=== PATIENT | male | born 1950 | race Two or more races ===

== ENCOUNTER 2021-10-31 14:51 | Outpatient (CLI) | payer OTHER | END 2021-10-31 14:53 | disposition home or self-care (01) | LOC: LAB 14:51 | PROVIDERS: ATTEND Urology | DX: R97.20 Elevated prostate specific antigen [PSA] (principal) ==

== ENCOUNTER 2021-12-26 07:24 | Outpatient (CLI) | payer OTHER | END 2021-12-26 07:38 | disposition home or self-care (01) | LOC: SONOGRAMA 07:24 | PROVIDERS: ATTEND Urology | DX: C61 Malignant neoplasm of prostate (principal); N42.89 Other specified disorders of prostate; N40.0 Benign prostatic hyperplasia without lower urinary tract symptoms ==